=== PATIENT | male | born 1960 | race African-American/Black ===

== ENCOUNTER 2016-10-05 09:24 | Inpatient (IN) | payer BC ==
[~2016-10-05] VITALS: Ht 185.4 cm; Wt 105.2 kg
[~2016-10-05 09:24] MED LIST: AMLO5TAB2 PO; ASPI81CH43 PO; BENA40TA2 PO; HYDR25TA4 PO; METO50TA7 PO; SIMV-8 PO
[2016-10-05] MEDS ORDERED: SODIUM CHLORIDE 0.9% 1,000 ML IV ONE (09:40)
[2016-10-05] MEDS ORDERED: NALBUPHINE HCL 10 MG/1ml INJECTION IV ONE (09:45)
[2016-10-05] MEDS ORDERED: ONDANSETRON HCL 4 MG/2 ML VIAL IV ONE (09:45)
[2016-10-05 10:08] LABS: Basophils # (auto) 0 uL; Basophils % (auto) 0.4 % (0.0-2.0); Eosinophils # (auto) 0.1 uL; Eosinophils % (auto) 0.9 % (0.0-7.0); Hematocrit 47.2 % (41.0-53.0); Hemoglobin 15.9 g/dL (13.5-17.5); Lymphocytes # (auto) 2.2 uL; Lymphocytes % (auto) 30.6 % (10.0-50.0); Mean Corpuscular Hemoglobin 30.1 pg (28.0-32.0); Mean Corpuscular Hgb Conc. 33.8 g/dL (32.0-36.0); Mean Corpuscular Volume 89.3 fL (80.0-100.0); Monocytes # (auto) 0.9 uL; Monocytes % (auto) 13.1 % (0.0-12.0); Neutrophils # (auto) 3.9 uL; Platelet Count (auto) 163 10^3/uL (140-450); Red Cell Distribution Width 15.8 % (11.6-16.0)
[2016-10-05] MEDS ORDERED: ASPirin 81 mg TAB PO ONE (10:15)
[2016-10-05 11:01] LABS: Albumin 3.8 g/dL (3.4-5.0); Alkaline Phosphatase 77 U/L (45-117); Anion Gap 18 (5-15); Aspartate Aminotransferase 75 U/L (15-37); BUN/Creatinine Ratio 15.1; Bilirubin, Total 1.2 mg/dL (0.2-1.0); Blood Urea Nitrogen 22 mg/dL (7-18); Calcium 9.7 mg/dL (8.5-10.1); Carbon Dioxide 23 mmol/L (21-32); Chloride 99 mmol/L (98-107); GFR African American 65 mL/min; GFR Non-African American 53 mL/min; Glucose 111 mg/dL (74-106); Sodium 140 mmol/L (136-145); Total Protein 8.1 g/dL (6.4-8.2)
[2016-10-05 11:05] LABS: Potassium 2.7 mmol/L (3.5-5.1)
[2016-10-05 11:18] LABS: INR 1.06 (0.9-1.15); Partial Thromboplastin Time 22.5 sec (22.64-33.71); Prothrombin Time 11.5 sec (9.37-12.3)
[2016-10-05] MEDS ORDERED: POTASSIUM CHL 10% (20 MEQ/15ML) ORAL SOLN PO ONE (11:30)
[2016-10-05] MEDS ORDERED: TEMAZEPAM 15 MG CAP PO PRN (11:45)
[2016-10-05] MEDS ORDERED: LORazepam 0.5 MG TAB PO PRN (11:45)
[2016-10-05] MEDS ORDERED: LACTULOSE 20Gm/30ML SOLN PO PRN (11:45)
[2016-10-05] MEDS ORDERED: MORPHINE SULF INJ 2 MG/ML SYRINGE 1ML IV PRN ×2 (11:45)
[2016-10-05] MEDS ORDERED: ACETAMINOPHEN 500 MG TAB PO PRN (11:45)
[2016-10-05] MEDS ORDERED: PROCHLORPERAZINE EDISYLATE 5 MG/ML 2ML VIAL IV PRN (11:45)
[2016-10-05] MEDS ORDERED: NITROGLYCERIN 0.4 MG SL TAB SL PRN (11:45)
[2016-10-05] MEDS: SOD CHL 0.9%/ KCL 40MEQ 1,000 ML IV SCH ×2 (12:38→21:49)
[2016-10-05] MEDS: HYDROcodone-ACET 5/325MG TAB PO PRN (13:28)
[2016-10-05 13:45] VITALS: BP 91/68
[2016-10-05 13:49] LABS: Hepatitis B Surface Antibody Negative
[2016-10-05] MEDS ORDERED: IOHEXOL 350 MG/ML 100ML IJ ONE (14:55)
[2016-10-05] MEDS ORDERED: PANTOPRAZOLE 40 MG TAB PO ONE (15:00)
[2016-10-05] MEDS ORDERED: ENOXAPARIN SOD 40 MG/0.4 ML SYRINGE SC ONE (15:00)
[2016-10-05 17:44] VITALS: BP 118/64
[2016-10-05 20:00] VITALS: BP 91/53
[2016-10-05 21:39] VITALS: BP 91/55
[2016-10-05] MEDS: METOPROLOL TARTRATE 25 MG TAB PO SCH (21:40)
[2016-10-05] MEDS ORDERED: ATORVASTATIN 20 MG TAB PO SCH (22:00)
[2016-10-06] MEDS: SOD CHL 0.9%/ KCL 40MEQ 1,000 ML IV SCH (01:58)
[2016-10-06] MEDS: HYDROcodone-ACET 5/325MG TAB PO PRN (05:16)
[2016-10-06 05:36] VITALS: BP 103/53
[2016-10-06 07:30] LABS: Albumin 3.1 g/dL (3.4-5.0); BUN/Creatinine Ratio 17.4; Bilirubin, Total 0.8 mg/dL (0.2-1.0); Calcium 8.9 mg/dL (8.5-10.1); Potassium 3.2 mmol/L (3.5-5.1); Total Protein 6.6 g/dL (6.4-8.2)
[2016-10-06 08:26] VITALS: BP 129/67
[2016-10-06] MEDS: METOPROLOL TARTRATE 25 MG TAB PO SCH (09:48)
[2016-10-06] MEDS ORDERED: ASPirin 81 mg TAB PO SCH (10:00)
[2016-10-06] MEDS ORDERED: ENOXAPARIN SOD 40 MG/0.4 ML SYRINGE SC SCH (10:00)
[2016-10-06] MEDS ORDERED: PANTOPRAZOLE 40 MG TAB PO SCH (10:00)
[2016-10-06 10:41] LABS: Urine Bilirubin Negative (Negative); Urine Blood TRACE /uL (Negative); Urine Color Yellow (Yellow); Urine Glucose Normal (Normal); Urine Ketone Negative (Negative); Urine Nitrite Negative (Negative); Urine RBC 1 /hpf (0 - 3); Urine Urobilinogen Normal (Negative)
[2016-10-06 14:00] VITALS: BP 109/69
== END 2016-10-06 13:30 | disposition home or self-care (01) | DRG 558 ==
LOC: ER 09:24 → TELE 09:25 → TELE-E-ADS 13:22 → TELE-CENTR 14:24
PROVIDERS: ADMIT Internal Medicine; ATTEND Internal Medicine
DX: M62.82 Rhabdomyolysis (principal); N17.9 Acute kidney failure, unspecified; E87.6 Hypokalemia; F17.210 Nicotine dependence, cigarettes, uncomplicated; B19.20 Unspecified viral hepatitis C without hepatic coma; T46.6X5A Adverse effect of antihyperlipidemic and antiarteriosclerotic drugs, initial encounter; I11.9 Hypertensive heart disease without heart failure; R79.89 Other specified abnormal findings of blood chemistry; Z82.0 Family history of epilepsy and other diseases of the nervous system; Z82.49 Family history of ischemic heart disease and other diseases of the circulatory system; Y92.89 Other specified places as the place of occurrence of the external cause
CPT/HCPCS: 36415; 71010; 71275; 76705; 80053; 80061; 81001; 82550; 84484; 85025; 85379; 85610; 85652; 85730; 86141; 86704; 86706; 86708; 86803; 87340; 93005; 96361; 96374; 96375; G0434; J2405